=== PATIENT | male | born 1945 | race Caucasian/White ===

== ENCOUNTER 2017-05-23 05:50 | Emergency (ER) | payer OTHER ==
[2017-05-23 06:48] VITALS: TEMP 97.4; BMI 27.6
[2017-05-23] MEDS ORDERED: ACETAMINOPHEN 500 MG TABLET (FP) PO ONE (07:30)
--- NOTE | 2017-05-23 07:30 | PDOC ---
History of Present Illness - General Chief Complaint: Injury Stated Complaint: PAIN Time Seen by Provider: 05/23/17 07:14 History Source: Patient Exam Limitations: No Limitations - History of Present Illness Initial Comments: 05/23/17 07:54 Patient is a 71-year-old male with past medical history of hypertension, hyperlipidemia, status post pig valve replacement, who presents to the emergency room today after slipping and falling on the ice this morning. Patient states she was out walking the dogs at approximately 4:30 when he slipped and fell. Patient believes that he only hit his back however he is unsure if he hit his head. Patient takes a baby aspirin 81mg daily. Patient states that he has a lot of pain in his mid back. It hurts to walk. He did not take any medication for pain. Denies loss of consciousness, dizziness, lightheadedness, nausea, vomiting, visual changes, bowel or bladder incontinence , saddle anesthesia. 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 Past History - Travel Traveled outside of the country in the last 30 days: No Close contact w/someone who was outside of country & ill: No - Past Medical History Allergies/Adverse Reactions: Allergies Allergy/AdvReac Type Severity Reaction Status Date / Time No Known Allergies Allergy Verified 05/23/17 06:48 Home Medications: Ambulatory Orders Cyclobenzaprine HCl [Flexeril -] 10 mg PO HS #10 tablet 05/23/17 Ibuprofen 800 mg PO TID #30 tablet 05/23/17 COPD: No HTN: Yes Hypercholesterolemia: Yes - Surgical History Cardiac Surgery: Yes (valve) - Suicide/Smoking/Psychosocial Hx Smoking History: Former smoker Have you smoked in the past 12 months: No Information on smoking cessation initiated: No Review of Systems - Review of Systems Able to Perform ROS?: Yes Comments:: 05/23/17 07:53 CONSTITUTIONAL: Absent: fever, chills, diaphoresis, generalized weakness, malaise, loss of appetite HEENT: Absent: rhinorrhea, nasal congestion, throat pain, throat swelling, difficulty swallowing, mouth swelling, ear pain, eye pain, visual Changes CARDIOVASCULAR: Absent: chest pain, loss of consciousness, palpitations, irregular heart rate, peripheral edema RESPIRATORY: Absent: cough, shortness of breath, dyspnea with exertion, orthopnea, wheezing, stridor, hemoptysis GASTROINTESTINAL: Absent: abdominal pain, abdominal distension, nausea, vomiting, diarrhea, constipation, melena, hematochezia GENITOURINARY: Absent: dysuria, frequency, urgency, hesitancy, hematuria, flank pain, genital pain MUSCULOSKELETAL: Present: Back pain to upper back s/p fall. Absent: myalgia, arthralgia, joint swelling SKIN: Absent: rash, itching, pallor HEMATOLOGIC/IMMUNOLOGIC: Absent: easy bleeding, easy bruising, lymphadenopathy, frequent infections ENDOCRINE: Absent: unexplained weight gain, unexplained weight loss, heat intolerance, cold intolerance NEUROLOGIC: Absent: headache, focal weakness or paresthesias, dizziness, unsteady gait, seizure, mental status changes, bladder or bowel incontinence PSYCHIATRIC: Absent: anxiety, depression, suicidal or homicidal ideation, hallucinations. Is the patient limited Turkish proficient: No *Physical Exam - Vital Signs Last Vital Signs Temp Pulse Resp BP Pulse Ox 97.4 F L 60 18 134/80 98 05/23/17 05:54 05/23/17 05:54 05/23/17 05:54 05/23/17 05:54 05/23/17 05:54 - Physical Exam Comments: 05/23/17 07:52 GENERAL: Well developed, well nourished. Awake and alert, can recall events of the fall. No acute distress, breathing easily HEENT: Normocephalic, atraumatic. PERRLA, EOMI. No conjunctival pallor. Sclera are non- icteric. Moist mucous membranes. Oropharynx is clear. NECK: Supple. Full ROM. No JVD. Carotid pulses 2+ and symmetric, without bruits. No thyromegaly. No lymphadenopathy. CARDIOVASCULAR: Regular rate and rhythm. No murmurs, rubs, or gallops. Distal pulses are 2+ and symmetric. PULMONARY: No evidence of respiratory distress. Lungs clear to auscultation bilaterally. No wheezing, rales or rhonchi. ABDOMINAL: Soft. Non-tender. Non-distended. No rebound or guarding. No organomegaly. Normoactive bowel sounds. MUSCULOSKELETAL Midline tenderness to thoracic region of back approximately at the level of T8. Normal range of motion at all joints. No bony deformities. No CVA tenderness. EXTREMITIES: No cyanosis. No clubbing. No edema. No calf tenderness. SKIN: Warm and dry. Normal capillary refill. No rashes. No jaundice. No bruising noted. NEUROLOGICAL: Alert, awake, appropriate. Cranial nerves 2-12 intact. No deficits to light touch and temperature in face, upper extremities and lower extremities. No motor deficits in the in face, upper extremities and lower extremities. Normoreflexic in the upper and lower extremities. Normal speech. Toes are down- going bilaterally. Gait is normal without ataxia, however appears uncomfortable. PSYCHIATRIC: Cooperative. Good eye contact. Appropriate mood and affect. Medical Decision Making - Medical Decision Making 05/23/17 07:56 Patient is a 71-year-old male with past medical history of hypertension, hyperlipidemia, status post pig valve replacement, on baby aspirin, who presents to the emergency department today after mechanical slip and fall on the ice this morning. Patient has midline tenderness to his thoracic back at approximately the level of T8. Patient is unsure if he hit his head. Therefore at this time we will obtain head CT to rule out bleed, fracture. We'll also obtain thoracic spine, lumbar spine and sacral spine x-rays. Will give Tylenol for pain. Reevaluate. 05/23/17 09:[address] negative for fracture or bleed. Spine x-rays show no acute fractures or compressions. Will d/c home at this time. Will prescribe flexeril for pain. Pt understands all d/c instructions and all questions were answered. *DC/Admit/Observation/Transfer Diagnosis at time of Disposition: Fall from slipping on ice Qualifiers: Encounter type: initial encounter Qualified Code(s): W00.9XXA - Unspecified fall due to ice and snow, initial encounter - Discharge Dispostion Disposition: HOME Condition at time of disposition: Good Admit: No - Referrals Referrals: Rudy Thurman MD [Primary Care Provider] - - Patient Instructions Printed Discharge Instructions: DI for Thoracic Back Pain Additional Instructions: Your head CT is negative for bleed or broken bones in the head. The x-rays of her back were negative for broken bones as well. You may use heat or ice to the affected areas help with pain. Please take ibuprofen 800 mg 3 times a day to help with your pain. Do not take more than 3000 mg a day. You may also take Flexeril at night to help with your symptoms. Please follow-up with your primary care doctor this week. Return to the emergency department if you have worsening pain, numbness and tingling in her legs or feet, loss of bladder or bowel control, headaches, nausea, vomiting, dizziness, lightheadedness, or changes in the way walk. Or any changes in your symptoms. - Post Discharge Activity
[2017-05-23] MEDS ORDERED: ACETAMINOPHEN 325 MG TABLET (FP) ONE (08:04)
[2017-05-23 10:14] VITALS: BP 137/80; PULSE 66
== END 2017-05-23 10:14 | disposition home or self-care (01) ==
LOC: JER 05:50
DX: M54.6 Pain in thoracic spine (principal); I10 Essential (primary) hypertension; E78.00 Pure hypercholesterolemia, unspecified; Z95.2 Presence of prosthetic heart valve; W00.2XXA Other fall from one level to another due to ice and snow, initial encounter; Y93.K1 Activity, walking an animal; Y92.480 Sidewalk as the place of occurrence of the external cause; Y99.8 Other external cause status
CPT/HCPCS: 70450-TC; 72070-TC; 72100-TC; 99283-25

== ENCOUNTER 2018-08-25 06:05 | Emergency (ER) | payer OTHER ==
--- NOTE | 2018-08-25 06:16 | PDOC ---
History of Present Illness - General Stated Complaint: R ARM PAIN X 2 WEEKS Time Seen by Provider: 08/25/18 06:15 - History of Present Illness Initial Comments: 08/25/18 06:15 Patient is a 71-year-old male with past medical history of CAD s/p stent placement on Clopidogrel, hypertension, hyperlipidemia, status post pig valve replacement, who presents to the emergency room today with right wrist swelling pain and redness for the past few hours. He complains that over the past two weeks he has been having migratory joint pain and swelling, the most recent of which was over the base of the left 4th and 5th digit. Denies family history of lupus, rheumatoid arthritis, gout. No recent viral illness that he can remember. No recent fever, weight loss or chills. No known history of hepatitis. Past History - Past Medical History Allergies/Adverse Reactions: Allergies Allergy/AdvReac Type Severity Reaction Status Date / Time No Known Allergies Allergy Verified 08/25/18 06:22 Home Medications: Ambulatory Orders Aspirin [ASA -] 81 mg PO DAILY 08/25/18 Atenolol [Tenormin -] 25 mg PO DAILY 08/25/18 Atorvastatin Ca [Lipitor] 40 mg PO HS 08/25/18 Clopidogrel Bisulfate [Clopidogrel] 75 mg PO 08/25/18 Ergocalciferol (Vitamin D2) [Drisdol] 50,000 unit PO 08/25/18 COPD: No HTN: Yes Hypercholesterolemia: Yes - Surgical History Cardiac Surgery: Yes (valve) - Suicide/Smoking/Psychosocial Hx Smoking History: Former smoker Have you smoked in the past 12 months: No Review of Systems - Review of Systems Able to Perform ROS?: Yes Is the patient limited Montserratian proficient: No Constitutional: No: Symptoms Reported HEENTM: No: Symptoms Reported Respiratory: No: Symptoms reported Cardiac (ROS): No: Symptoms Reported ABD/GI: No: Symptoms Reported : No: Symptoms Reported Musculoskeletal: Yes: See HPI Integumentary: No: Symptoms Reported Neurological: No: Symptoms reported All Other Systems: Reviewed and Negative *Physical Exam - Physical Exam General Appearance: Yes: Nourished, Appropriately Dressed. No: Apparent Distress HEENT: positive: EOMI, VASQUEZ, Normal ENT Inspection Respiratory/Chest: positive: Lungs Clear, Normal Breath Sounds. negative: Chest Tender, Respiratory Distress Cardiovascular: positive: Regular Rhythm, Regular Rate, S1, S2 Gastrointestinal/Abdominal: positive: Normal Bowel Sounds, Flat, Soft. negative : Tender Musculoskeletal: positive: Other Extremity: positive: Other (Left wrist: erythema, Soft tissue swelling, warm, joint tenderness to palpation and effusion and loss of motion) Neurologic: positive: Fully Oriented, Alert, Normal Mood/Affect, Normal Response Medical Decision Making - Medical Decision Making 08/25/18 07:01 Patient is a 71-year-old male with past medical history of CAD s/p stent placement on Clopidogrel, hypertension, hyperlipidemia, status post pig valve replacement, who presents to the emergency room today with right wrist swelling pain and redness for the past few hours. He complains that over the past two weeks he has been having migratory joint pain and swelling, the most recent of which was over the base of the left 4th and 5th digit. Polyarthalgia associated with synovitis with symptoms for less than 6 weeks consisted with viral arthritis vs early rheumatic disease. Will check inflammatory markers (ESR and CRP), liver function, uric acid for gout, hepatitis. Low suspicion for septic joint as the patient doesn't have fever and more than one joints are affected over the past few days. Patient signed out to Dr. Nelson *DC/Admit/Observation/Transfer Diagnosis at time of Disposition: Arthralgia - Referrals Referrals: Rudy Thurman MD [Primary Care Provider] - - Patient Instructions - Post Discharge Activity
[2018-08-25 06:22] VITALS: TEMP 97.9; BMI 30.9
--- NOTE | 2018-08-25 06:35 | PDOC ---
Attending Attestation - Resident Resident Name: Moises Moon - ED Attending Attestation I have performed the following: I have examined & evaluated the patient, The case was reviewed & discussed with the resident, I agree w/resident's findings & plan - HPI HPI: 08/25/18 07:05 Right wrist pain and swelling - Physicial Exam PE: 08/25/18 07:10 Agree with resident exam - Medical Decision Making 08/25/18 07:10 Pt signed out to the day team
[2018-08-25] MEDS ORDERED: ACETAMINOPHEN 1000 MG/100 ML VIAL (NON FORMULARY) IVPB ONE (06:58)
--- NOTE | 2018-08-25 06:58 | PDOC ---
*Physical Exam - Vital Signs Last Vital Signs Temp Pulse Resp BP Pulse Ox 97.9 F 76 18 102/66 98 08/25/18 06:20 08/25/18 06:20 08/25/18 06:20 08/25/18 06:20 08/25/18 06:20 ED Treatment Course - LABORATORY CBC & Chemistry Diagram: 08/25/18 06:50 08/25/18 06:30 Medical Decision Making - Medical Decision Making 08/25/18 07:12 Patient signed out by Dr. Moon (Resident) and Dr. Jon (Attending) 72 year old male presents with R wrist edema and pain. 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 Awaiting labs including inflammator markers, uric acid, Hepatitis panel, LFT's. Septic arthritis also in differential though less likely given clinical presentation, urine G/C ordered - results in 48 hours. Patient assessed @ bedside w/Dr. Moon. VSS, c/o pain. IV Tylenol. Reassess. 08/25/18 08:16 Patient reassessed @ bedside Symptomatically improved s/p Tylenol Mildly elevated AST, CRP elevated @ 0.9 XR pending 08/25/18 09:56 XR report shows post-tramautic avulsion vs. calcification - no soft tissue swelling 08/25/18 09:58 G/C pending Will discharge patient home with return precautions, Rheumatology referral. Clinical Impression: Arthritis - ? inflammatory vs. infectious vs. viral etiology I discussed the physical exam findings, ancillary test results and final diagnoses with the patient. I answered all of the patient's questions. The patient was satisfied with the care received and felt comfortable with the discharge plan and treatment plan. The patient will return to the Emergency Department with any new, persistent or worsening symptoms. 08/25/18 17:39 *DC/Admit/Observation/Transfer Diagnosis at time of Disposition: Arthralgia - Discharge Dispostion Disposition: HOME Condition at time of disposition: Good Decision to Admit order: No - Prescriptions Prescriptions: Cephalexin Monohydrate [Keflex -] 500 mg PO Q8H #15 capsule - Referrals Referrals: Rudy Thurman MD [Primary Care Provider] - Fermín Borjas MD [Staff Physician] - - Patient Instructions Additional Instructions: We have sent a prescription for an antibiotic to your pharmacy, please complete the entire course as directed. Make a follow-up appointment with a tare man in the next 3 days. Please also follow up with your primary care doctor, Dr. Thurman, in the next 3 days. Your care is not complete until you are evaluated by a tare man and Dr. Thurman. You can continue to take Tylenol for your pain, up to 4000 mg daily. Return to the Emergency Department for any new/worsening/concerning symptoms including fevers, severe pain. - Post Discharge Activity
[2018-08-25 07:05] LABS: BASO % 0.7 % (0-2.0); EOS % 0.6 % (0-4.5); HEMOGLOBIN 14.6 GM/dL (11.7-16.9); LYMPH % 16.1 % (8-40); MCH 30.8 pg (25.7-33.7); MEAN CELL VOLUME 90.5 fl (80-96); MEAN PLT VOLUME 9.8 fl (7.5-11.1); MONO % 7.2 % (3.8-10.2); NEUT % 75.4 % (42.8-82.8); PLATELET COUNT 180 K/MM3 (134-434); RBC 4.75 M/mm3 (4.00-5.60); RDW 13.6 % (11.9-15.9); WHITE BLOOD COUNT 9.8 K/mm3 (4.0-10.0)
[2018-08-25] MEDS ORDERED: ACETAMINOPHEN INJECTION 100 ML IVPB ONE (07:09)
[2018-08-25 07:42] LABS: ALBUMIN 3.8 g/dl (3.4-5.0); ALK PHOS 82 U/L (45-117); ANION GAP 5 MMOL/L (8-16); BLOOD UREA NITROGEN 17 mg/dL (7-18); CALCIUM 9.1 mg/dL (8.5-10.1); CHLORIDE 108 mmol/L (98-107); CO2 26 mmol/L (21-32); GLUCOSE,RANDOM 97 mg/dL (74-106); POTASSIUM 4.9 mmol/L (3.5-5.1); SGOT/AST 45 U/L (15-37); SGPT/ALT 29 U/L (13-61); SODIUM 140 mmol/L (136-145); TOT PROT 7.6 g/dl (6.4-8.2)
[2018-08-25 08:46] LABS: EPI CELLS 0.3 /HPF (0-5/HPF); PH,URINE 5.5 (5.0-8.0); URINE APPEARANCE CLEAR; URINE BACTERIA 0.5 /hpf (NEGATIVE); URINE BILIRUBIN NEGATIVE (NEGATIVE); URINE CASTS 1 /lpf (0-8); URINE COLOR YELLOW; URINE GLUCOSE (UA) NEGATIVE (NEGATIVE); URINE KETONE TRACE (NEGATIVE); URINE LEUK ESTERASE NEGATIVE (NEGATIVE); URINE NITRITE NEGATIVE (NEGATIVE); URINE PROTEIN NEGATIVE (NEGATIVE); URINE RBC 2 /hpf (0-4); URINE UROBILINOGEN 0.2 mg/dL (0.2-1.0); URINE WBC 0 /hpf (0-5)
[2018-08-25 10:46] VITALS: BP 106/61; PULSE 73
[2018-08-26 15:11] LABS: HEP.C VIRUS AB <0.1 s/co ratio (0.0-0.9)
[2018-08-27 18:09] LABS: PARV B19 IGG 0.4 index (0.0-0.8); PARV B19 IGM 0.2 index (0.0-0.8)
== END 2018-08-25 10:46 | disposition home or self-care (01) ==
LOC: JER 06:05
PROC: 3E033NZ Introduction of Analgesics, Hypnotics, Sedatives into Peripheral Vein, Percutaneous Approach (ICD-10-PCS; principal; 2018-08-25)
DX: M13.831 Other specified arthritis, right wrist (principal); I25.10 Atherosclerotic heart disease of native coronary artery without angina pectoris; I10 Essential (primary) hypertension; Z95.5 Presence of coronary angioplasty implant and graft; E78.5 Hyperlipidemia, unspecified; Z95.4 Presence of other heart-valve replacement
CPT/HCPCS: 36415; 73110-TC-RT-FY; 73130-TC-RT-FY; 80053; 80074; 81003; 84550; 85025; 85651; 86140; 86747; 87086; 87491; 87591; 96374; 99283-25; J0131

== ENCOUNTER 2021-01-08 11:03 | Emergency (ER) | payer OTHER ==
[2021-01-08 11:23] VITALS: BP 127/76; PULSE 88; TEMP 97.7; BMI 30.3
== END 2021-01-08 12:00 | disposition home or self-care (01) ==
LOC: JER 11:03
DX: K08.89 Other specified disorders of teeth and supporting structures (principal)
CPT/HCPCS: 99281-25

== ENCOUNTER 2022-04-09 12:40 | Emergency (ER) | payer OTHER ==
[2022-04-09 12:46] VITALS: BP 122/58; PULSE 69; RESP 18; TEMP 98; BMI 30.3
== END 2022-04-09 14:08 | disposition home or self-care (01) ==
LOC: JERFT 12:40 → JER 12:40 → JERFT 14:08
DX: H10.502 Unspecified blepharoconjunctivitis, left eye (principal)
CPT/HCPCS: 99281-25